=== PATIENT | female | born 1985 | race Hispanic/Latino ===

== ENCOUNTER 2016-12-17 19:30 | Emergency (ER) | payer OTHER ==
[2016-12-17 19:52] VITALS: BMI 24.9
[2016-12-17 19:55] VITALS: BP 123/89; PULSE 99; RESP 18; TEMP 98.1; O2SAT 99
[2016-12-17 20:37] LABS: URINE BILIRUBIN NEGATIVE (NEGATIVE); URINE BLOOD LARGE (NEGATIVE); URINE GLUCOSE (UA) NEGATIVE (NEGATIVE); URINE KETONE TRACE mg/dL (NEGATIVE); URINE LEUKOCYTE ESTERASE MODERATE Leu/uL (NEGATIVE); URINE PROTEIN 100 mg/dL (<30 mg/dL); URINE UROBILINOGEN 0.2 E.U./dL (<1 E.U./dL)
--- NOTE | 2016-12-17 20:37 | ED PDOC ---
Arrival/HPI - General Historian: Patient <Aristeo Castillo - Last Filed: 12/17/16 20:43> <Anjel Shine - Last Filed: 12/17/16 21:05> - General Chief Complaint: Female Genitourinary Time Seen by Provider: 12/17/16 20:24 - History of Present Illness Narrative History of Present Illness (Text): 12/17/16 20:25 31 y/o female, no significant pmh, nkda, c/o burning urinary sensation and suprapubic discomfort x 2 days. PT. stated that this feels like her usual UTI but little bit more quicker onset this time, no vaginal bleeding or discharge, no pelvic pain, no night sweat, no palpitation, no rash, no other medical or psychological complaints. (Aristeo Castillo) Past Medical History - Provider Review Nursing Documentation Reviewed: Yes - Infectious Disease Hx of Infectious Diseases: None - Psychiatric Hx Substance Use: No - Anesthesia Hx Anesthesia: No <Aristeo Castillo - Last Filed: 12/17/16 20:43> Family/Social History - Physician Review Nursing Documentation Reviewed: Yes Family/Social History: Unknown Family HX Smoking Status: Never Smoked Hx Alcohol Use: No Hx Substance Use: No <Aristeo Castillo - Last Filed: 12/17/16 20:43> Allergies/Home Meds <Aristeo Castillo - Last Filed: 12/17/16 20:43> <Anjel Shine - Last Filed: 12/17/16 21:05> Allergies/Adverse Reactions: Allergies No Known Allergies Allergy (Verified 12/17/16 19:51) Review of Systems - Review of Systems Constitutional: absent: Fatigue, Fevers Eyes: absent: Vision Changes ENT: absent: Hearing Changes Respiratory: absent: SOB, Cough Cardiovascular: absent: Chest Pain Gastrointestinal: absent: Abdominal Pain, Diarrhea, Nausea, Vomiting Genitourinary Female: Dysuria. absent: Frequency, Hematuria, Urine Output Changes, Vaginal Bleeding, Vaginal Discharge Musculoskeletal: absent: Arthralgias, Back Pain, Myalgias Skin: absent: Rash, Pruritis <Aristeo Castillo - Last Filed: 12/17/16 20:43> Physical Exam Vital Signs Reviewed: Yes Temperature: Afebrile Blood Pressure: Normal Pulse: Regular Respiratory Rate: Normal Appearance: Positive for: Well-Appearing, Non-Toxic, Comfortable Pain Distress: Mild Mental Status: Positive for: Alert and Oriented X 3 - Systems Exam Head: Present: Atraumatic, Normocephalic Pupils: Present: PERRL Extroacular Muscles: Present: EOMI Conjunctiva: Present: Normal Mouth: Present: Moist Mucous Membranes Neck: Present: Normal Range of Motion Respiratory/Chest: Present: Clear to Auscultation, Good Air Exchange. No: Respiratory Distress, Accessory Muscle Use Cardiovascular: Present: Regular Rate and Rhythm, Normal S1, S2. No: Murmurs Abdomen: Present: Normal Bowel Sounds. No: Tenderness, Distention, Peritoneal Signs Genitourinary/Pelvic Exam: Present: Other (mild suprapubic tenderness) Back: Present: Normal Inspection Upper Extremity: Present: Normal Inspection. No: Cyanosis, Edema Lower Extremity: Present: Normal Inspection. No: Edema Neurological: Present: GCS=15, CN II-XII Intact, Speech Normal Skin: Present: Warm, Dry, Normal Color. No: Rashes Psychiatric: Present: Alert, Oriented x 3, Normal Insight, Normal Concentration <Aristeo Castillo - Last Filed: 12/17/16 20:43> Medical Decision Making <Aristeo Castillo - Last Filed: 12/17/16 20:43> <Anjel Shine - Last Filed: 12/17/16 21:05> ED Course and Treatment: 12/17/16 20:46 -Urine hcg negative -UA show +UTI, IM rocephine ordered/motrin and pyridium ordered -DIscharge home with macrobid, pyridium, tylenol, stay hydrated, follow up with your own pmd within 2 days, return to the ER for any new or worsening signs or symptoms. (Aristeo Castillo) - Lab Interpretations Lab Results: Lab Results 12/17/16 20:05: Urine Color Yellow, Urine Appearance Cloudy, Urine pH 6.0, Ur Specific [place] 1.020, Urine Protein 100 H, Urine Glucose (UA) Negative, Urine Ketones Trace H, Urine Blood Large H, Urine Nitrate Positive H, Urine Bilirubin Negative, Urine Urobilinogen 0.2, Ur Leukocyte Esterase Moderate H, Urine RBC Tntc, Urine WBC Tntc, Ur Epithelial Cells 3 - 4, Urine Bacteria Many - Medication Orders Current Medication Orders: Discontinued Medications Ceftriaxone Sodium (Rocephin) 1 gm IM STAT STA PRN Reason: Protocol Stop: 12/17/16 20:43 Ibuprofen (Motrin Tab) 600 mg PO STAT STA Stop: 12/17/16 20:46 Phenazopyridine HCl (Pyridium) 200 mg PO STAT STA Stop: 12/17/16 20:44 - PA / HAND COLLATOR / Resident Statement EMILIANO has reviewed & agrees with the documentation as recorded. <Aristeo Castillo - Last Filed: 12/17/16 20:43> - PA / HAND COLLATOR / Resident Statement EMILIANO has reviewed & agrees with the documentation as recorded. EMILIANO has examined the patient and agrees with the treatment plan. <Anjel Shine - Last Filed: 12/17/16 21:05> Disposition/Present on Arrival - Present on Arrival Any Indicators Present on Arrival: No History of DVT/PE: No History of Uncontrolled Diabetes: No Urinary Catheter: No History of Decub. Ulcer: No History Surgical Site Infection Following: None - Disposition Have Diagnosis and Disposition been Completed?: Yes Disposition Time: 20:48 Patient Plan: Discharge <Aristeo Castillo - Last Filed: 12/17/16 20:43> <Anjel Shine - Last Filed: 12/17/16 21:05> - Disposition Diagnosis: Cystitis Disposition: HOME/ ROUTINE Patient Problems: Current Active Problems Problem Status Onset Cystitis Acute Condition: GOOD Additional Instructions: -DIscharge home with macrobid, pyridium, tylenol, stay hydrated, follow up with your own pmd within 2 days, return to the ER for any new or worsening signs or symptoms. Prescriptions: Acetaminophen [Tylenol 325mg tab] 2 tab PO QID PRN #30 tab PRN Reason: Other Nitrofurantoin Macrocrystals [Macrobid] 100 mg PO BID #14 cap Phenazopyridine [Phenazopyridine HCl] 200 mg PO TID #6 tab Referrals: PCP,NO [Primary Care Provider] - Follow up with primary Whitney Pereira MD [Staff Provider] - Follow up with primary Forms: [employer] (Thai), WORK NOTE
[2016-12-17 20:39] LABS: URINE APPEARANCE CLOUDY (CLEAR); URINE COLOR YELLOW (YELLOW)
[2016-12-17] MEDS ORDERED: cefTRIAXone (Rocephin) 1 gm Inj IM STA (20:42)
[2016-12-17 20:49] LABS: URINE RBC TNTC /hpf (0-2); URINE WBC TNTC /hpf (0-6)
[2016-12-17 20:50] LABS: URINE BACTERIA MANY (NEG)
== END 2016-12-17 21:15 | disposition home or self-care (01) ==
LOC: ED 19:30
DX: N30.90 Cystitis, unspecified without hematuria (principal)
CPT/HCPCS: 81001; 87086; 96372; 99283; J0696